=== PATIENT | male | born 1950 | race Caucasian/White ===

== ENCOUNTER 2022-07-28 11:15 | Day surgery (SDC) | payer MEDICARE, OTHER ==
[2022-07-28] VITALS (18 sets, daily range): BP systolic 102–172; BP diastolic 60–80
[~2022-07-28] VITALS: Ht 177.8 cm; Wt 91.0 kg
[~2022-07-28 11:15] MED LIST: AMLO5 PO; FLUTICASONE-SA1 EAC1 INH; Flonase 0.05% N16 GM; HYDCHL25 PO; LISI20 PO; METAMUCIL POWD798 GM PO; TAMS.4ER PO; ZINC15 PO
--- NOTE | 2022-07-28 12:16 | NUR ---
Ambulatory in Day Surgery. Pre-Op teaching done. Pt verbalizes understanding. Patient confirms NPO status and agrees with scheduled surgery. Pre-Op teaching done. Pt verbalizes understanding. Patient States Post-Procedure ride home has been arranged. Lungs clear T/O to Auscultation.
--- NOTE | 2022-07-28 12:25 | NUR ---
ADMIT NOTE Ambulatory in Day Surgery. History, Chart, Medications and Allergies reviewed before start of procedure.Lungs clear T/O to Auscultation.
--- NOTE | 2022-07-28 12:31 | NUR ---
07/28/22 1231 Fatmata Ramirez HISTORY, CHART, MEDICATIONS AND ALLERGIES REVIEWED BEFORE START OF PROCEDURE. PATIENT CONFIRMS NPO STATUS AND AGREES WITH SCHEDULED PROCEDURE. 3-LEAD EKG REVIEWED WITH PHYSICIAN PRIOR TO START OF PROCEDURE. MONITOR INTACT WITH CONTINUOUS PULSE OXIMETRY,CAPNOGRAPHY, 3-LEAD EKG, INTERMITTENT BP. SUPPLEMENTAL O2 TO BE TITRATED THROUGHOUT PROCEDURE TO MAINTAIN O2 SATURATION ABOVE 90%. PATIENT DETERMINED TO BE ASA APPROPRIATE FOR PROPOFOL SEDATION PRIOR TO START OF PROCEDURE BY
--- NOTE | 2022-07-28 13:47 | NUR ---
Patient up to Ambulate independently. Gait steady. Discharge instructions reviewed with patient. Patient verbalizes understanding. Copy given to patient to take home. Patient States Post-Procedure ride home has been arranged. Discharged via wheelchair to private car for ride home. BELONGINGS SENT WITH PT.
== END 2022-07-28 23:37 | disposition home or self-care (01) ==
LOC: ORSCMMR 11:15 → ORD 12:45 → ORSCMMR 12:45
PROVIDERS: Internal Medicine Gastroenterology
PROC: 0DBK8ZX Excision of Ascending Colon, Via Natural or Artificial Opening Endoscopic, Diagnostic (ICD-10-PCS; principal; 2022-07-28 12:45)
PROC: 0DBH8ZX Excision of Cecum, Via Natural or Artificial Opening Endoscopic, Diagnostic (ICD-10-PCS; principal; 2022-07-28 12:45)
DX: Z12.11 Encounter for screening for malignant neoplasm of colon (principal); Z86.010 Personal history of colon polyps; D12.0 Benign neoplasm of cecum; K63.5 Polyp of colon; K64.8 Other hemorrhoids; K57.30 Diverticulosis of large intestine without perforation or abscess without bleeding; I10 Essential (primary) hypertension; Z79.899 Other long term (current) drug therapy
CPT/HCPCS: 88305; J2704; J7120

== ENCOUNTER 2023-06-12 06:07 | Day surgery (SDC) | payer MEDICARE, OTHER ==
[2023-06-12] VITALS (16 sets, daily range): BP systolic 120–161; BP diastolic 64–91
[~2023-06-12] VITALS: Ht 182.9 cm; Wt 98.4 kg
[~2023-06-12 06:07] MED LIST changes: +MULVITA PO
[2023-06-12] MEDS ORDERED: CeFAZolin Sodium 2,000 MG in NS 100 ML IV SCH (06:20)
[2023-06-12] MEDS ORDERED: Chlorhexidine Mouth Care 15 ML UDC MT SCH (06:20)
[2023-06-12] MEDS ORDERED: Acetaminophen 500 MG Tab PO SCH ×2 (06:20→08:00)
[2023-06-12] MEDS ORDERED: OxyCODONE HCL 10 MG TABCR PO SCH (06:20)
[2023-06-12] MEDS ORDERED: Ropivacaine 0.5% HCl/Pf 67.75 MG,EPINEPHrine HCL 0.25 MG,Ketorolac Tromethamine 15 MG,C... INFIL SCH (06:20)
[2023-06-12] MEDS ORDERED: Lactated Ringer's 1,000 ML IV SCH ×2 (06:20→07:55)
[2023-06-12] MEDS ORDERED: Tranexamic Acid 1,000 MG in NS 100 ML IV SCH (06:30)
--- NOTE | 2023-06-12 06:57 | NUR ---
History, Chart, Medications and Allergies reviewed before start of procedure. Lungs clear T/O to Auscultation. Patient confirms NPO status and agrees with scheduled surgery. Pre-Op teaching done. Pt verbalizes understanding. Patient reports completing Chlorhexadine shower X2 prior to admission to hospital.
[2023-06-12] MEDS ORDERED: Vancomycin HCL 1,000 MG in NS 100 ML IV SCH (07:25)
[2023-06-12] MEDS ORDERED: FentaNYL Citrate 50 MCG/ML 2 ML Injection ONE (07:32)
[2023-06-12] MEDS ORDERED: Midazolam HCl 1MG / ML 2ML Vial ONE (07:32)
[2023-06-12] MEDS ORDERED: Bupivacaine 0.5% HCl 5 MG/ML 30MLVIAL ONE (07:34)
[2023-06-12] MEDS ORDERED: propofoL 40 ML IV ONE (07:50)
[2023-06-12] MEDS ORDERED: Dexamethasone Sod Phos 10 MG/ML 1ML VIAL ONE (07:52)
[2023-06-12] MEDS ORDERED: Ketorolac Tromethamine 30mg Vial ONE (07:53)
[2023-06-12] MEDS ORDERED: Bisacodyl 10 MG Supp PR PRN (07:55)
[2023-06-12] MEDS ORDERED: DiphenhydrAMINE HCL 25 MG Cap PO PRN (07:55)
[2023-06-12] MEDS ORDERED: HYDROmorphone HCl/Pf 1MG SYR IV PRN ×2 (07:55→08:25)
[2023-06-12] MEDS ORDERED: OxyCODONE HCL 5 MG TAB PO PRN ×2 (08:00)
[2023-06-12] MEDS ORDERED: Metoclopramide HCl 5MG / ML 2ML Vial IV PRN (08:00)
[2023-06-12] MEDS ORDERED: Magnesium Hydroxide Conc 10 ML UDC PO PRN (08:00)
[2023-06-12] MEDS ORDERED: Ondansetron HCl 2 MG / ML 2ML Vial IV PRN ×2 (08:00→08:30)
[2023-06-12] MEDS ORDERED: Promethazine HCl 25 MG Tab PO PRN (08:05)
[2023-06-12] MEDS ORDERED: Albuterol 2.5 MG/3 ML VIAL INH PRN (08:25)
[2023-06-12] MEDS ORDERED: FentaNYL Citrate 50 MCG/ML 2 ML Injection IV PRN (08:25)
--- NOTE | 2023-06-12 08:37 | NUR ---
06/12/23 0837 Sachi Esquivel SPINAL NERVE BLOCK COMPLETED BY DR. CORADO UPON ENTRY TO OR. PT TOLERATED WELL.
[2023-06-12] MEDS ORDERED: Docusate Sodium 100 MG Cap PO SCH (09:00)
[2023-06-12] MEDS ORDERED: Lisinopril 20 MG Tab PO SCH (09:00)
[2023-06-12] MEDS ORDERED: AmLODIPine Besylate 5 MG Tab PO SCH (09:00)
[2023-06-12] MEDS ORDERED: HydroCHLOROthiazide 25 mg Tab PO SCH (09:00)
[2023-06-12] MEDS ORDERED: Fluticasone 0.05% Nasal Spray SCH (09:00)
--- NOTE | 2023-06-12 10:26 | NUR ---
ARRIVAL TO SURGICAL FLOOR ARRIVED IN HOSPITAL BED, AWAKE AND ALERT. DENIES N/V. SNACKS AND DRINKS GIVEN. SPINAL WNL. ASSESSMENT CHARTED. FAMILY AT BEDSIDE.
[2023-06-12] MEDS ORDERED: Ketorolac Tromethamine 15mg Vial IV SCH (12:00)
--- NOTE | 2023-06-12 17:49 | NUR ---
SHIFT SUMMARY SINCE ARRIVING TO SURGICAL FLOOR AFTER RIGHT TKA, PATIENT HAS BEEN DOING WELL. EATING AND DRINKING WITH NO ISSUES. VOIDING WITH NO ISSUES. PATIENT WORKED WITH PT THIS AFTERNOON AND AMBULATED IN HALLWAY WITH STAFF. THE DRESSING WAS CHANGED BACK TO AQUACEL AFTER DRAINAGE SLOWED.
[2023-06-12] MEDS ORDERED: Vancomycin HCL 1,000 MG in NS 100 ML IV ONE (20:00)
[2023-06-12] MEDS ORDERED: Tamsulosin HCl 0.4 MG Cap PO SCH (21:00)
[2023-06-12] MEDS ORDERED: Psyllium 1 EA Pack PO SCH (21:00)
[2023-06-13 00:21] VITALS: BP 121/70
[2023-06-13 04:51] LABS: BASOPHILS ABSOLUTE AUTO 0.02 K/mm3 (0.00-0.23); BASOPHILS PERCENT AUTO 0 % (0-2); EOSINOPHILS ABSOLUTE AUTO 0.01 K/mm3 (0.00-0.68); EOSINOPHILS PERCENT AUTO 0 % (0-6); Hematocrit 38.1 % (37.0-53.0); Hemoglobin 13.5 g/dL (13.5-17.5); IMMATURE GRAN ABSOLUTE AUTO 0.08 K/mm3 (0.00-0.10); IMMATURE GRAN PERCENT AUTO 0 % (0-1); LYMPHOCYTES ABSOLUTE AUTO 1.39 K/mm3 (0.84-5.20); LYMPHOCYTES PERCENT AUTO 8 % (21-46); MONOCYTES ABSOLUTE AUTO 1.42 K/mm3 (0.16-1.47); MONOCYTES PERCENT AUTO 8 % (4-13); Mean Corpuscular HGB 31.6 pg (26.0-34.0); Mean Corpuscular HGB Conc 35.4 g/dL (31.5-36.5); Mean Corpuscular Volume 89 fL (80-100); Mean Platelet Volume 9.4 fL (9.1-12.4); NEUTROPHILS ABSOLUTE AUTO 15.35 K/mm3 (1.96-9.15); NEUTROPHILS PERCENT AUTO 84 % (41-73); Platelet Count 237 K/mm3 (150-400); RDW Coefficient Variation 12.3 % (11.7-14.2); RDW Standard Deviation 39.6 fL (35.1-46.3); Red Blood Cell Count 4.27 M/mm3 (4.30-5.90); White Blood Cell Count 18.27 K/mm3 (4.00-11.30)
--- NOTE | 2023-06-13 05:09 | NUR ---
SHIFT SUMMARY PT IS POD1 FOR A R TKA. A/O X4, 1 ASSIST W/ FWW AND GB TO BATHROOM. PT AMBULATED AND VOIDED MULTIPLE TIMES W/O DIFFICULTY. SCANT SANGUINEOUS DRAINAGE PRESENT ON AQUACEL DRESSING W/ NO SIGNIFICANT INCREASE THROUGHOUT SHIFT. CAP REFILL IN R TOES 2 SECS, WARM TO TOUCH, ABLE TO WIGGLE TOES BILATERALLY. CRYO, PAS, MARÍA ELENA HOSE IN PLACE. PT MEDICATED FOR PAIN PER EMAR W/ GOOD RESULTS. TOLERATING PO INTAKE. VSS. PT USING CALL LIGHT APPROPRIATELY.
[2023-06-13 05:26] LABS: Bun/Creatinine Ratio 21.8 (12.0-20.0); Calcium, Blood 8.8 mg/dL (8.5-10.1); Creatinine, Blood 0.96 mg/dL (0.60-1.20); Potassium, Blood 3.6 mmol/L (3.5-5.5)
[2023-06-13 05:30] VITALS: BP 123/70
[2023-06-13 07:05] VITALS: BP 145/72
[2023-06-13] MEDS ORDERED: ASPI81CH PO ×2 (08:42)
[2023-06-13] MEDS ORDERED: Aspirin 81 MG Chew PO SCH (09:00)
--- NOTE | 2023-06-13 11:00 | NUR ---
DISCHARGE POD1 R TKA, AQUACEL CHANGED BEFORE DC(QUARTER SIZE SHADOW), TEDS/POLAR JENNIFER. A&OX4, VSS/RA, DENNIS PO, VOIDING, AMB FWW, PAIN MANAGED, IV DC'D. DC INS PROVIDED. PT REP UNDERSTANDING THOSE INSTRUCTIONS INCLUDING FWW WITH ALL AMB. LEFT FLOOR VIA WC WITH SENIOR PRODUCTION MANAGER TO GO HOME WITH AND SON, WITH ALL PERSONAL POSSESSIONS INCLUDING AQUACEL DRESSINGS X2, POLAR JENNIFER, DC INS.
[2023-06-13] MEDS ORDERED: OXYC5 (21:24)
== END 2023-06-13 11:04 | disposition home or self-care (01) ==
LOC: ORSCMMR 06:07 → ORD 10:00 → SURS 10:15 → ORSCMMR 11:15
PROVIDERS: Orthopaedic Surgery
PROC: 0SRC0JA Replacement of Right Knee Joint with Synthetic Substitute, Uncemented, Open Approach (ICD-10-PCS; principal; 2023-06-12 07:30)
DX: M17.11 Unilateral primary osteoarthritis, right knee (principal); Z85.820 Personal history of malignant melanoma of skin; I10 Essential (primary) hypertension; N40.0 Benign prostatic hyperplasia without lower urinary tract symptoms; G62.9 Polyneuropathy, unspecified; Z79.899 Other long term (current) drug therapy
CPT/HCPCS: 27447; 0055T; 36415; 73560-RT; 80048; 82947; 83735; 85025; 97110; 97116; 97162; A9270; C1713; C1776; J0171; J0690; J0735; J1100; J1885; J2250; J2704; J2795; J3010; J3370; J7120

== ENCOUNTER 2023-06-13 21:08 | Emergency (ER) | payer MEDICARE, OTHER ==
[~2023-06-13] VITALS: Ht 182.9 cm; Wt 86.2 kg
[~2023-06-13 21:08] MED LIST changes: +ASPI81CH PO
[2023-06-13 21:21] VITALS: BP 153/66
[2023-06-13] MEDS ORDERED: OXYC5 (21:24)
== END 2023-06-13 23:00 | disposition home or self-care (01) ==
LOC: ER 21:08
DX: G89.18 Other acute postprocedural pain (principal); M25.561 Pain in right knee; Z79.899 Other long term (current) drug therapy; Z79.82 Long term (current) use of aspirin; Z88.1 Allergy status to other antibiotic agents; Z96.651 Presence of right artificial knee joint
CPT/HCPCS: 99283